=== PATIENT | male | born 1995 | race African-American/Black ===

== ENCOUNTER 2025-02-18 02:34 | Emergency (ER) | payer OTHER ==
[~2025-02-18] VITALS: Ht 172.7 cm; Wt 74.8 kg
[2025-02-18 02:40] VITALS: BP 127/70; TEMP 98; O2SAT 98
== END 2025-02-18 03:02 ==
LOC: ER 02:36
DX: S00.81XA Abrasion of other part of head, initial encounter (principal); Z60.2 Problems related to living alone; V47.5XXA Car driver injured in collision with fixed or stationary object in traffic accident, initial encounter; Y93.89 Activity, other specified; Y92.415 Exit ramp or entrance ramp of street or highway as the place of occurrence of the external cause; Y99.8 Other external cause status